=== PATIENT | female | born 1970 ===

== ENCOUNTER 2018-10-14 08:44 | Outpatient (CLI) | payer OTHER | END 2018-10-14 08:45 | disposition home or self-care (01) | LOC: C.LAB 08:44 ==

== ENCOUNTER 2018-10-22 07:41 | Outpatient (CLI) | payer OTHER | END 2018-10-22 07:42 | disposition home or self-care (01) | LOC: C.CTH 07:41 | DX: R10.9 Unspecified abdominal pain (principal) ==